=== PATIENT | female | born 1965 | race Hispanic/Latino ===

== ENCOUNTER 2017-11-06 14:22 | Outpatient (CLI) | payer OTHER ==
--- NOTE | 2017-11-06 15:47 | XRay Report ---
XRAY LEFT HIP THREE VIEWS: 11/06/17 14:22:00 CLINICAL: Left hip pain. FINDINGS: No fracture or dislocation. Minimal osteoarthritis with slight narrowing of joint space and superior acetabular eburnation. Similar changes in the right hip. The pelvic bones are intact. The SI joints are normal. Normal soft tissues. IMPRESSION: Minimal osteoarthritis.
== END 2017-11-06 14:23 | disposition home or self-care (01) ==
LOC: SPVIMAG 14:22
PROVIDERS: ATTEND Orthopaedic Surgery Sports Medicine
DX: M16.12 Unilateral primary osteoarthritis, left hip (principal)

== ENCOUNTER 2017-12-11 14:22 | Outpatient (CLI) | payer OTHER ==
--- NOTE | 2017-12-11 17:44 | XRay Report ---
FINAL REPORT EXAM: XR SPINE LUMBOSACRAL 2-3V HISTORY: LEFT HIP PAIN TECHNIQUE: Lumbar spine five views PRIORS: None. FINDINGS: Vertebral bodies demonstrate normal height and alignment. There is disc space narrowing at L3-L4 and L4-5. There is no evidence of spondylolisthesis. Transverse and spinous processes are intact SI joints are unremarkable. IMPRESSION: Degenerative disc disease at L3-L4 and L4-5
== END 2017-12-11 14:23 | disposition home or self-care (01) ==
LOC: SPVIMAG 14:22
PROVIDERS: ATTEND Orthopaedic Surgery Sports Medicine
DX: M25.552 Pain in left hip (principal); M51.36 Other intervertebral disc degeneration, lumbar region
CPT/HCPCS: 72100